=== PATIENT | female | born 1990 | race Caucasian/White ===

== ENCOUNTER → 2020-03-22 14:46 | Outpatient (CLI) | payer BC, SELFPAY ==
[2020-03-24 13:47] LABS: Covid-19 Nasal PCR Sendout Lex Not Detected
== END ==
PROVIDERS: PCP Family Medicine; Visit Provider Nurse Practitioner Family
DX: Z03.818 Encounter for observation for suspected exposure to other biological agents ruled out (principal)
CPT/HCPCS: U0004

== ENCOUNTER → 2020-06-29 15:38 | Outpatient (CLI) | payer BC, SELFPAY | PROVIDERS: PCP Family Medicine; Visit Provider Family Medicine | DX: Z03.818 Encounter for observation for suspected exposure to other biological agents ruled out (principal) | CPT/HCPCS: U0003 ==

== ENCOUNTER 2024-08-22 13:56 | Outpatient (CLI) | payer BC, SELFPAY ==
[2024-08-22 13:05] LABS: Basophils # 0.1 K/mm3 (0-0.2); Basophils % 0.7 % (0.1-2.0); Eosinophils # 0.3 K/mm3 (0.0-0.4); Eosinophils % 3.2 % (0.1-12.0); Hematocrit 41.2 % (37.0-47.0); Hemoglobin 13.9 g/dL (12.2-16.2); Lymphocytes # 2.6 K/mm3 (0.7-4.5); Lymphocytes % 33.1 % (10-50); Mean Corpuscular HGB Conc 33.8 g/dL (31.8-35.4); Mean Corpuscular Hemoglobin 30.4 pg (27.0-31.2); Mean Corpuscular Volume 89.9 fl (81-99); Mean Platelet Volume 7.3 fl (7.4-10.4); Monocytes # 0.5 K/mm3 (0.1-1.0); Monocytes % 6.4 % (1.7-9.3); Neutrophils # 4.5 K/mm3 (1.8-7.8); Neutrophils % 56.7 % (37.0-80.0); Platelet Count 303 K/mm3 (142-424); Red Blood Count 4.58 M/mm3 (4.20-5.40); Red Cell Distribution Width 13.7 % (11.5-17.5)
[2024-08-22 13:50] LABS: Alanine Aminotransferase 15 U/L (12-78); Albumin Level 4.1 g/dl (3.5-5.0); Albumin/Globulin Ratio 1.4 (1.1-1.8); Alkaline Phosphatase 110 U/L (38-126); Aspartate Amino Transferase 19 U/L (14-36); Bilirubin,Total 0.6 mg/dl (0.2-1.3); Blood Urea Nitrogen 12 mg/dl (7-17); Calcium 9.1 mg/dl (8.4-10.2); Carbon Dioxide 25 mmol/L (22.0-30.0); Chloride 106 mmol/L (98-107); Estimated Glomerular Filt Rate 116 ml/min (>60); GFR (African American) 140 ML/MIN (>60); Glucose 84 mg/dl (74-100); Magnesium 1.9 mg/dl (1.6-2.3); Sodium 139 mmol/L (136-145); Total Protein,Serum 7.1 g/dl (6.3-8.2)
[2024-08-22 14:37] LABS: Vitamin B12 234 pg/mL (239-931)
[2024-08-23 03:36] LABS: Thyroid Peroxidase Antibodies <9 IU/mL (0-34)
[2024-08-23 07:15] LABS: Triiodothyronine (T3) Free 3.3 pg/mL (2.0-4.4)
[2024-08-23 13:22] LABS: Antinuclear Antibodies (ANA) Negative (Negative)
[2024-08-23 14:18] LABS: Thyroglobulin Level <1.0 IU/mL (0.0-0.9)
[2024-08-24 03:11] LABS: Intrinsic Factor Abs, Serum 1.2 AU/mL (0.0-1.1)
== END 2024-08-22 23:59 | disposition home or self-care (01) ==
LOC: LAB.DROPOF 13:56
PROVIDERS: PCP Nurse Practitioner Family; Visit Provider Nurse Practitioner Family
DX: R51.9 Headache, unspecified (principal); Z83.2 Family history of diseases of the blood and blood-forming organs and certain disorders involving the immune mechanism; E53.8 Deficiency of other specified B group vitamins
CPT/HCPCS: 80050; 80053; 82607; 83735; 84443; 84481; 85025; 86038; 86340; 86376; 86800

== ENCOUNTER 2024-09-15 06:12 | Outpatient (CLI) | payer BC, SELFPAY ==
--- NOTE | 2024-09-15 06:24 | CT_ITS ---
FINAL REPORT TECHNIQUE: Multiple axial CT sections were performed through the face without IV contrast. Coronal and sagittal reconstruction images were performed. This study was performed with techniques to keep radiation doses as low as reasonably achievable (ALARA). Individualized dose reduction techniques using automated exposure control or adjustment of mA and/or kV according to the patient's size were employed. CLINICAL HISTORY: left sided headache, facial swelling COMPARISON: None FINDINGS: There is mild mucoperiosteal thickening in the posterior right maxillary sinus consistent with sinusitis. No air-fluid levels are seen. The ostiomeatal units are patent. There is no fracture. There are no air-fluid levels. IMPRESSION: Mild right maxillary sinusitis. Reviewed, Interpreted and Dictated by Jay Rosa MD Transcribed by Diamond Matthew Authenticated and [facility]
--- NOTE | 2024-09-15 06:24 | CT_ITS ---
FINAL REPORT TECHNIQUE: Thin section axial CT images with coronal and sagittal reformats were performed through the neck. This study was performed with techniques to keep radiation doses as low as reasonably achievable (ALARA). Individualized dose reduction techniques using automated exposure control or adjustment of mA and/or kV according to the patient''s size were employed. CLINICAL HISTORY: left sided neck pain and swelling COMPARISON: None FINDINGS: There are small bilateral cervical lymph nodes measuring up to 1.5 cm. No localized inflammatory reaction is seen. There are no fluid collections. There is mild mucoperiosteal thickening in the posterior right maxillary sinus.. Salivary glands are normal. Larynx is unremarkable. Thyroid gland is unremarkable. IMPRESSION: Reactive lymph nodes. Mild right maxillary sinusitis. Reviewed, Interpreted and Dictated by Jay Rosa MD Transcribed by Diamond Matthew Authenticated and [facility]
== END 2024-09-15 23:59 | disposition home or self-care (01) ==
PROVIDERS: PCP Nurse Practitioner Family; Visit Provider Nurse Practitioner Family
DX: M54.2 Cervicalgia (principal); R22.0 Localized swelling, mass and lump, head; R22.1 Localized swelling, mass and lump, neck
CPT/HCPCS: 70486; 70490

== ENCOUNTER 2024-10-03 16:30 | Outpatient (CLI) | payer BC, SELFPAY ==
[2024-10-03 17:37] LABS: Basophils % 0.3 % (0.1-2.0); Eosinophils # 0.1 K/mm3 (0.0-0.4); Eosinophils % 0.6 % (0.1-12.0); Hematocrit 39.3 % (37.0-47.0); Hemoglobin 13.2 g/dL (12.2-16.2); Lymphocytes # 3.6 K/mm3 (0.7-4.5); Lymphocytes % 30.5 % (10-50); Mean Corpuscular HGB Conc 33.6 g/dL (31.8-35.4); Mean Corpuscular Hemoglobin 30.3 pg (27.0-31.2); Mean Corpuscular Volume 90.3 fl (81-99); Mean Platelet Volume 9.4 fl (7.4-10.4); Monocytes % 8.4 % (1.7-9.3); Neutrophils # 7.1 K/mm3 (1.8-7.8); Neutrophils % 59.9 % (37.0-80.0); Platelet Count 309 K/mm3 (142-424); Red Blood Count 4.35 M/mm3 (4.20-5.40); Red Cell Distribution Width 12.2 % (11.5-17.5); White Blood Count 11.9 K/mm3 (4.8-10.8)
[2024-10-04 06:11] LABS: Vitamin B12 > 1000 pg/mL (239-931)
== END 2024-10-03 23:59 | disposition home or self-care (01) ==
LOC: LAB.DROPOF 10-04 13:03
PROVIDERS: PCP Nurse Practitioner Family; Visit Provider Nurse Practitioner Family
DX: E53.8 Deficiency of other specified B group vitamins (principal)
CPT/HCPCS: 82607; 85025